=== PATIENT | female | born 1960 | race Caucasian/White ===

== ENCOUNTER → 2021-10-20 | Outpatient (CLI) | payer OTHER ==
--- NOTE | 2021-10-20 13:21 | Diagnostic Imaging Report ---
INDICATION: Lumbar neuritis and hip pain. FINDINGS: There is mild to moderate osteoarthritic joint space narrowing of the left hip. Morphology of the femoral head is appropriate. There are no findings of fracture or suspicious bone lesion. The visualized portion of the pelvic ring appears intact. IMPRESSION: 1. Mild to moderate left hip osteoarthritic joint space narrowing. No acute process evident. There are no findings of fracture, bone lesion or osteonecrosis. Dictated by: Dictated on workstation # [id number]
--- NOTE | 2021-10-20 13:21 | Diagnostic Imaging Report ---
INDICATION: Lumbar neuritis. COMPARISON: No relevant comparison is available FINDINGS: There are advanced multilevel degenerative endplate changes present within the lumbar spine. There is mild scoliotic curvature with apex at L3-L4. The lateral view demonstrates a very slight retrolisthesis of L3 on 4. There are advanced endplate spurs. There are vacuum discs at L3-L4 and at the L5-S1 level. The vertebral body heights appear to be maintained. Note is made of marked sclerosis along the left aspect of the L3-L4 disc space. IMPRESSION: 1. Advanced multilevel lumbar degenerative disc disease and facet arthropathy. Vertebral body heights appear maintained. There are multilevel endplate spurs and vacuum disks with most advanced disc space height loss at the L2-L3, L3-L4 and L5-S1 levels. Further assessment with CT or MRI could be considered for assessment of stenosis. Dictated by: Dictated on workstation # [id number]
--- NOTE | 2021-10-20 13:22 | Diagnostic Imaging Report ---
INDICATION: Lumbar neuritis and hip pain. FINDINGS: There is mild/moderate joint space narrowing within the right hip. The femoral head maintains normal morphology. There is no acute fracture. The visualized portion of the pelvic ring is intact. IMPRESSION: 1. Mild/moderate right hip osteoarthritic joint space narrowing. There is no acute process. There are no findings of fracture, bone lesion or evidence of osteonecrosis. Dictated by: Dictated on workstation # [id number]
== END ==
LOC: RAD FS 12:32
PROVIDERS: ATTEND Nurse Practitioner Community Health
DX: M47.26 Other spondylosis with radiculopathy, lumbar region (principal); M51.17 Intervertebral disc disorders with radiculopathy, lumbosacral region; M16.0 Bilateral primary osteoarthritis of hip
CPT/HCPCS: 72100; 73502